=== PATIENT | female | born 1960 | race Caucasian/White ===

== ENCOUNTER → 2017-07-27 13:42 | Outpatient (CLI) | payer MEDICARE ==
[2014-10-14 08:29] VITALS: BMI 26.1
[~2017-07-27 13:42] MED LIST: BACTRIM DS TABL1 TAB PO; CLEOCIN HCL300 MG PO; CYMBALTA20 MG PO; DILAUDID2 MG PO; GABAPENTIN100 MG PO; NORCO 10/325 TA1 TA1 PO; SYNTHROID50 MCG PO; TAMOXIFEN CITRA20 MG PO; ULTRAM50 MG PO; VALIUM5 MG PO
== END | disposition home or self-care (01) ==
LOC: D.US 13:42
DX: R10.2 Pelvic and perineal pain (principal)